=== PATIENT | male | born 1970 | race Hispanic/Latino ===

== ENCOUNTER 2021-09-02 02:37 | Emergency (ER) | payer MEDICAID ==
[~2021-09-02] VITALS: Ht 177.8 cm; Wt 72.6 kg
[2021-09-02 02:43] VITALS: BP 158/90
[2021-09-02] MEDS ORDERED: ONDANSETRON 4MG INJ IVP ONE (03:00)
[2021-09-02] MEDS ORDERED: METOCLOPRAMIDE 10 MG/2 ML VIAL IVP ONE (03:00)
[2021-09-02] MEDS ORDERED: KETOROLAC 30MG VIAL (30MG/ML) IV ONE (03:00)
[2021-09-02] MEDS ORDERED: 0.9%NACL 1000ML 1,000 ML IV ONE (03:00)
[2021-09-02 03:12] LABS: BASOPHILS % (AUTO) 0.6 % (0.0-5.0); EOSINOPHILS % (AUTO) 3.4 % (0.0-8.0); HEMATOCRIT 41.7 % (42-54); LYMPHOCYTES % (AUTO) 43.1 % (21.0-51.0); MEAN CORPUSCULAR HEMOGLOBIN 30.4 pg (27.0-33.0); MEAN CORPUSCULAR HGB CONC 34.5 g/dL (32.0-36.0); MONOCYTES % (AUTO) 9.6 % (3.0-13.0); NEUTROPHILS % (AUTO) 42.8 % (40.0-77.0); PLATELET COUNT (AUTO) 216 K/uL (130-400); RED BLOOD CELL COUNT(AUTO) 4.74 MIL/uL (4.50-6.20); RED CELL DISTRIBUTION WIDTH 13.9 % (11.0-15.5); WHITE BLOOD COUNT (AUTO) 9.6 K/uL (4.8-10.8)
[2021-09-02 03:22] LABS: CREATININE 0.9 mg/dL (0.5-1.5); INR 0.94 (0.85-1.15); POTASSIUM 3.5 mmol/L (3.5-5.1); PROTHROMBIN TIME 10.3 SEC (9.6-11.6)
[2021-09-02] MEDS ORDERED: ORPHENADRINE CITRATE 30 MG/ML ML ONE (04:11)
[2021-09-02] MEDS ORDERED: ORPHENADRINE CITRATE 30 MG/ML ML IV ONE (04:30)
[2021-09-02] MEDS ORDERED: MELO7.5T12 PO (05:19)
[2021-09-02] MEDS ORDERED: ORPH-43 PO (05:19)
[2021-09-02] MEDS ORDERED: LIDOP TP (05:19)
== END 2021-09-02 05:35 | disposition home or self-care (01) ==
LOC: EDH 02:37
DX: R51.9 Headache, unspecified (principal); E86.9 Volume depletion, unspecified; F10.129 Alcohol abuse with intoxication, unspecified; M62.830 Muscle spasm of back; I10 Essential (primary) hypertension; Z79.1 Long term (current) use of non-steroidal anti-inflammatories (NSAID); Z79.899 Other long term (current) drug therapy; Z86.73 Personal history of transient ischemic attack (TIA), and cerebral infarction without residual deficits
CPT/HCPCS: 36415; 70450; 80048; 84484; 85025; 85610; 96361; 96374; 96375; 99284; J1885; J2360; J2405; J2765; J7030

== ENCOUNTER 2022-01-16 11:26 | Emergency (ER) | payer MEDICAID ==
[~2022-01-16] VITALS: Ht 175.3 cm; Wt 65.8 kg
[~2022-01-16 11:26] MED LIST: LIDOP TP; MELO7.5T12 PO; ORPH-43 PO
[2022-01-16] MEDS ORDERED: CLINDAMYCIN 150 MG CAP PO ONE (12:00)
[2022-01-16] MEDS ORDERED: ACETAMINOPHEN WITH CODEINE 1 TAB TAB PO PRN (12:00)
[2022-01-16] MEDS ORDERED: IBUP-2070 PO (12:21)
[2022-01-16] MEDS ORDERED: CLIN-141 PO (12:21)
[2022-01-16] MEDS ORDERED: CLONIDINE HCL 0.1 MG TABLET PO ONE (12:30)
[2022-01-16 12:44] VITALS: BP 160/108
== END 2022-01-16 12:53 | disposition home or self-care (01) ==
LOC: EDH 11:26
DX: K05.10 Chronic gingivitis, plaque induced (principal); K03.81 Cracked tooth; I10 Essential (primary) hypertension; F41.9 Anxiety disorder, unspecified; Z79.1 Long term (current) use of non-steroidal anti-inflammatories (NSAID)